=== PATIENT | female | born 1985 | race Caucasian/White ===

== ENCOUNTER 2018-10-16 05:39 | Outpatient (CLI) | payer BC ==
[~2018-10-16] VITALS: Ht 162.6 cm; Wt 71.7 kg
[~2018-10-16 05:39] MED LIST: AC325T PO; ALBU8.5H2 IH; AMIT50TA3 PO; BENZ100C18 PO; BUDE6HFA IH; CEFD300C3 PO; CEFP500T4 PO; CIPR500T78 PO; DEXL60CA5 PO; Docusate Sodium PO; ESTR0.62 PO; FEXO-14 PO; FEXO180T84 PO; GUAI118L10 PO; HYDR-757 PO; HYOS-19 SL; HYOS0.3710 PO; Hydrocodone Bit/Acetaminophen PO; IBP800T PO; Ibuprofen PO; LORA10TA76 PO; LUBI8CAP PO; Lupron; METR500T PO; MNTL10T PO; ONDA-42 SL; ONDA4TAB8 PO; ONDA8TAB13 PO; PANT20TA2 PO; PRD20T PO; RABE20TA PO; SCR1T1 PO; SUCR1TAB23 PO; Simethicone PO; TRAM50TA2 PO
[2018-10-16] MEDS ORDERED: BUDE10.2 IH (10:37)
[2018-10-16] MEDS ORDERED: OLME20TA24 PO (10:38)
[2018-10-16] MEDS ORDERED: ALBU6.7H8 INH (10:38)
[2018-10-16] MEDS ORDERED: BECL10.62 IH (10:38)
[2018-10-16] MEDS ORDERED: FEXO180T84 PO (10:38)
[2018-10-16] MEDS ORDERED: SERT100T8 PO (10:38)
[2018-10-21] MEDS ORDERED: PANT40TA2 PO (10:41)
== END 2018-10-16 11:33 | disposition home or self-care (01) ==
LOC: PREOP 05:39
PROVIDERS: ATTEND Surgery
DX: Z01.818 Encounter for other preprocedural examination (principal)

== ENCOUNTER 2018-10-21 08:34 | Day surgery (SDC) | payer BC ==
[2018-10-21] VITALS (20 sets, daily range): BP systolic 102–143; BP diastolic 58–93
[~2018-10-21] VITALS: Ht 162.6 cm; Wt 71.7 kg
[~2018-10-21 08:34] MED LIST changes: +ALBU6.7H8 INH; +BECL10.62 IH; +BUDE10.2 IH; +NS IV 500 ML 500 ML ONE; +OLME20TA24 PO; +SERT100T8 PO
[2018-10-21] MEDS ORDERED: HURRICAINE EXT TUBE (BENZOCAINE) XX PRN (08:45)
[2018-10-21] MEDS ORDERED: fentaNYL INJECTION 100 MCG/2 ML AMP IVP ONE (08:45)
[2018-10-21] MEDS ORDERED: NS IV 500 ML 500 ML IV PRN (08:45)
[2018-10-21] MEDS ORDERED: LIDOCAINE JELLY 2% 6 ML SYRINGE MM PRN (08:45)
[2018-10-21] MEDS ORDERED: MIDAZOLAM 2 MG/2 ML (VERSED) VIAL IVP ONE (08:45)
[2018-10-21] MEDS ORDERED: LIDOCAINE JELLY 2% 6 ML SYRINGE ONE (10:10)
[2018-10-21] MEDS ORDERED: fentaNYL INJECTION 100 MCG/2 ML AMP ONE ×3 (10:10→11:08)
[2018-10-21] MEDS ORDERED: MIDAZOLAM 2 MG/2 ML (VERSED) VIAL ONE ×6 (10:11→10:53)
[2018-10-21] MEDS ORDERED: HURRICAINE EXT TUBE (BENZOCAINE) ONE (10:11)
--- NOTE | 2018-10-21 10:39 | Conscious Sedation/ASA ---
Conscious Sedation Pre-Proced Time 10:00 ASA Score 2 For ASA 3 and 4: Consider anesthesia and medical clearance. Also, for patients with a history of failed moderate sedation consider anesthesia. Airway Lungs Heart ASA score ASA 1: a normal healthy patient ASA 2: a patient with a mild systemic disease (mid diabetes, controlled hypertension, obesity ASA 3: a patient with a severe systemic disease that limits activity (angina, COPD, prior Myocardial infarction) ASA 4: a patient with an incapacitating disease that is a constant threat to life (CHF, renal failure) ASA 5: a moribund patient not expected to survive 24 hrs. (ruptured aneurysm) ASA 6: a declared brain- patient whose organs are being harvested. For emergent operations, add the letter E after the classification Mallampati Classification Grade 2 Sedation Plan Analgesia, Amnesia, Plan communicated to team members, Discussed options with patient/fam, Discussed risks with patient/fam The patient is an appropriate candidate to undergo the planned procedure, sedation, and anesthesia. The patient immediately re-assessed prior to indication. CATALINA HATHAWAY MD Oct 21, 2018 10:39
--- NOTE | 2018-10-21 10:40 | Progress Note-Pre Operative ---
Pre-Operative Progress Note H&P Reviewed The H&P was reviewed, patient examined and no changes noted. Date Seen by Provider: Oct 21, 2018 Time Seen by Provider: 10:00 Date H&P Reviewed: Oct 21, 2018 Time H&P Reviewed: 10:00 Pre-Operative Diagnosis: hx luizas, abd pain CATALINA HATHAWAY MD Oct 21, 2018 10:40
[2018-10-21] MEDS ORDERED: PANT40TA2 PO (10:41)
--- NOTE | 2018-10-21 10:42 | Discharge Inst-Surgical ---
D/C Lap Instructions-KIDO New, Converted, or Re-Newed RX: RX on Chart Follow Up Appt in 2 weeks Activity as tolerated High Fiber Diet 25g or more per day Avoid Alcohol, Caffeine, Spicy Monserrate and Acid foods. Drink 64 fluid oz or more of fluids per day. Symptoms to Report: Fever over 101 degree F, Nausea/Vomiting If any problems/questions: Contact your physician or go to Emergency Room CATALINA HATHAWAY MD Oct 21, 2018 10:42
[2018-10-21] MEDS ORDERED: morphine INJ 10 MG/ML 1ML (SYR OR VIAL) IVP PRN ×2 (10:45)
[2018-10-21] MEDS ORDERED: ONDANSETRON 4 MG/2 ML (SDV) Z0FRAN IVP PRN (10:45)
[2018-10-21] MEDS ORDERED: HYDROcodone/APAP 5 MG/325 MG (LORTAB) TAB PO PRN (10:45)
[2018-10-21] MEDS ORDERED: ACETAMINOPHEN 325 MG TABLET PO PRN (10:45)
--- NOTE | 2018-10-21 11:43 | Progress Note-Post Operative ---
Post-Operative Progess Note Surgeon (s)/Targeteer (s) Surgeon CATALINA HATHAWAY MD Targeteer: none Pre-Operative Diagnosis hx barett's, abd pain Post-Operative Diagnosis reflux esophagitis(stage 2), no recurrent HH, moderate gastritis. chronic stage 2 ext and int hemorrhoids, no inflammatory change. Procedure & Operative Findings Date of Procedure 10/21/18 Procedure Performed/Findings EGD with bx. Colonoscopy. Anesthesia Type cs Estimated Blood Loss Estimated blood loss (mL): minimal Specimens/Packing Specimens Removed ge jxn, antrum CATALINA HATHAWAY MD Oct 21, 2018 11:43
--- NOTE | 2018-10-21 15:49 | OPERATIVE REPORT ---
DATE OF SERVICE: 10/21/2018 ATTENDING PRIMARY CARE PHYSICIAN: Dr. Marilee Villalobos. PREOPERATIVE DIAGNOSES: History of Finn's esophagus, diarrhea. POSTOPERATIVE DIAGNOSES: Reflux esophagitis, stage II, intact previous hiatal hernia repair and antireflux procedure, moderate gastritis, mild chronic stage II external and internal hemorrhoids. Remainder of the rectum and colon were normal. There were no mucosal inflammatory changes. PROCEDURE: EGD with biopsy, colonoscopy. SURGEON: Catalina Quinones MD. ANESTHESIA: Conscious sedation. ESTIMATED BLOOD LOSS: Minimal. FINDINGS: Reflux esophagitis, stage II, intact previous hiatal hernia repair and antireflux procedure, moderate gastritis, mild chronic stage II external and internal hemorrhoids. Remainder of the rectum and colon were normal. There were no mucosal inflammatory changes. DISPOSITION: The patient tolerated the procedure well. INDICATIONS: The patient is a 33-year-old female known to us. She has a history of gastroesophageal reflux disease as well as Finn's esophagus. She was seen by us 11/2012 for dysphagia, reflux for the past several years. She is originally from the [facility] and was living there when her symptoms first developed. She then developed worsening reflux as well as regurgitation and eventually underwent a hiatal hernia repair as well as a Jeni fundoplication in 2012. We had done a repeat EGD on her in 2016. She was found to have a reflux esophagitis, stage II, intact previous hiatal hernia repair and Jeni fundoplication. She was found to have Finn's esophagus. She has also had this issue with diarrhea from several years. She states there is no correlation with food or drinks. She states that she has tried medications for irritable bowel syndrome as well as Flagyl with no success. She does have a family history of inflammatory bowel disease with her father having ulcerative colitis as well as a paternal grandmother having Crohn's disease. DESCRIPTION OF PROCEDURE: The patient was brought to the endoscopy suite, laid in the left lateral decubitus position. After adequate IV pain and sedating medications and conscious sedation anesthesia, the mouthpiece was applied. The endoscope was placed in the mouth, visualizing the pharynx and hypopharyngeal region. Vocal cords, epiglottis and vallecula identified and appeared to be normal. The endoscope was then gently intubated into the esophageal opening and esophagus insufflated. The endoscope was then advanced to the first, second, third portions of the esophagus at the level of the GE junction, a reflux esophagitis, stage II identified. There were no ulcers or strictures identified in this region. Her biopsies were taken using forceps with visualization of good hemostasis. The endoscope was then advanced in the stomach and endoscope retroflexed, visualizing an intact previous hiatal hernia repair as well as intact antireflux procedure. There was a moderate severity gastritis. No formal ulcerations, polyps, or any neoplasms. A biopsy was taken of the antrum to rule out H. pylori with visualization of good hemostasis. Endoscope was then advanced to the pylorus and the first and second portion of the duodenum, which appeared normal with no distal obstructions. The endoscope was then slowly withdrawn while taking a second look and suctioning of residual air with no additional findings. Under the same anesthesia, we then proceeded with the colonoscopy portion of the procedure. Digital rectal examination was performed, which revealed chronic stage II external and internal hemorrhoids, not actively edematous nor inflamed and no bleeding. There were no inflammatory chronic or acute inflammatory changes, abscesses, fluctuance or any fistulous tracts. Normal sphincter tone was felt and there were no palpable masses. The endoscope was then intubated to the anus and rectum gently insufflated. The endoscope was then advanced to the valves of Smith of the rectum with no polyps or any neoplasms identified. The endoscope was then advanced through the sigmoid colon where no diverticulosis identified. The endoscope was then advanced to the descending, transverse and ascending colon to the cecum. These segments were normal. There were no polyps or any neoplasms identified as well as no mucosal inflammatory changes throughout the colon or rectum. The endoscope was slowly withdrawn while taking a second look and suctioning of residual air with no additional findings. The patient tolerated the procedure well. We will recommend continued medical management and proceed with a trial of Questran 4 grams on a p.r.n. basis. She did have a gallbladder workup several years ago, which did not show any abnormalities; however, due to her persistent symptoms, we will have her again proceed with another gallbladder workup with ultrasound that this did not show any stones than a hepatobiliary scan. Job ID: [id number] DocumentID: [id number] Dictated Date: 10/21/2018 11:33:36 Braid Pattern Setter Date: 10/21/2018 15:48:25 Dictated By: CATALINA QUINONES MD
== END 2018-10-21 12:56 | disposition home or self-care (01) ==
LOC: ENDO 08:34
PROVIDERS: ATTEND Surgery
DX: K21.0 Gastro-esophageal reflux disease with esophagitis (principal); K29.70 Gastritis, unspecified, without bleeding; K22.70 Barrett's esophagus without dysplasia; K64.1 Second degree hemorrhoids; K64.8 Other hemorrhoids; K44.9 Diaphragmatic hernia without obstruction or gangrene; K58.9 Irritable bowel syndrome, unspecified; F41.9 Anxiety disorder, unspecified; I10 Essential (primary) hypertension; G43.911 Migraine, unspecified, intractable, with status migrainosus; J45.909 Unspecified asthma, uncomplicated; R19.7 Diarrhea, unspecified; D64.9 Anemia, unspecified; Z90.89 Acquired absence of other organs; Z79.899 Other long term (current) drug therapy; Z90.710 Acquired absence of both cervix and uterus; Z91.040 Latex allergy status; Z91.048 Other nonmedicinal substance allergy status; Z87.891 Personal history of nicotine dependence; Z82.49 Family history of ischemic heart disease and other diseases of the circulatory system; Z83.3 Family history of diabetes mellitus; Z80.1 Family history of malignant neoplasm of trachea, bronchus and lung; Z80.0 Family history of malignant neoplasm of digestive organs; Z83.2 Family history of diseases of the blood and blood-forming organs and certain disorders involving the immune mechanism; Z83.79 Family history of other diseases of the digestive system
CPT/HCPCS: 88305

== ENCOUNTER → 2018-10-28 | Outpatient (CLI) | payer BC ==
[~2018-10-28] MED LIST changes: -NS IV 500 ML 500 ML ONE; +PANT40TA2 PO
--- NOTE | 2018-10-28 09:11 | Diagnostic Imaging Report ---
PROCEDURE: US Gallbladder. TECHNIQUE: Multiple real-time grayscale images were obtained over the right upper quadrant in various projections. INDICATION: Right upper quadrant abdominal pain. COMPARISON: None. FINDINGS: Liver: Normal in size and echotexture. No focal lesion is seen. Appropriate hepatopetal flow is demonstrated in the main portal vein. Gallbladder: Normal. No stones or gallbladder wall thickening. No pericholecystic fluid. Negative sonographic Titus's sign. Biliary Tree: No intrahepatic or extrahepatic bile duct dilation is identified. The proximal common duct measures 0.3 cm in diameter. Pancreas: No abnormality in the visualized portion of the pancreatic head. The body and tail are obscured by overlying bowel gas. Right kidney: Normal parenchymal echotexture and thickness. No hydronephrosis, stone or mass. IMPRESSION: Right upper quadrant ultrasound is within normal limits. Dictated by: Dictated on workstation # [id number]
== END ==
LOC: RAD 08:06
PROVIDERS: ATTEND Surgery
DX: R10.11 Right upper quadrant pain (principal); R11.2 Nausea with vomiting, unspecified
CPT/HCPCS: 76705

== ENCOUNTER → 2018-11-05 | Outpatient (CLI) | payer BC ==
--- NOTE | 2018-11-05 17:35 | Diagnostic Imaging Report ---
INDICATION: Fall, pain. COMPARISON: Radiographs of the chest dated September 24, 2014. TECHNIQUE: Three radiographs of the left-sided ribs dated November 05, 2018. FINDINGS: No displaced or healing rib fracture. No large volume pleural effusion or pneumothorax. Surgical clip is again identified overlying the left upper abdomen/lower chest. IMPRESSION: No displaced or healing rib fracture. No significant pleural effusion or pneumothorax. Dictated by: Dictated on workstation # [id number]
== END ==
LOC: RAD 15:59
PROVIDERS: ATTEND Nurse Practitioner Family
DX: R07.81 Pleurodynia (principal); W19.XXXA Unspecified fall, initial encounter
CPT/HCPCS: 71100

== ENCOUNTER → 2018-11-09 | Outpatient (CLI) | payer BC, OTHER ==
[~2018-11-09] MED LIST changes: +CATHETER FLUSH 10 ML SYR IV PRN
--- NOTE | 2018-11-09 12:26 | Diagnostic Imaging Report ---
INDICATION: Right upper quadrant pain. TECHNIQUE: The patient was administered 5.3 mCi technetium 99m Choletec intravenously and imaging over the abdomen was performed. At one hour, the patient ingested 8 ounces of Ensure and a gallbladder ejection fraction was calculated. FINDINGS: There is homogeneous uptake of activity by the liver. There is prompt excretion of activity into the common duct and gallbladder. Normal passage of activity into the small bowel is seen. Gallbladder ejection fraction is 99%. IMPRESSION: 1. Patent cystic duct and common bile duct. 2. Gallbladder ejection fraction of 99%. Dictated by: Dictated on workstation # [id number]
== END ==
LOC: CARD 09:27
PROVIDERS: ATTEND Surgery
DX: R10.11 Right upper quadrant pain (principal); R11.2 Nausea with vomiting, unspecified
CPT/HCPCS: 78227

== ENCOUNTER → 2019-02-08 | Outpatient (CLI) | payer BC, OTHER ==
[~2019-02-08] MED LIST changes: -CATHETER FLUSH 10 ML SYR IV PRN
--- NOTE | 2019-02-08 14:51 | Diagnostic Imaging Report ---
INDICATION: Cough. TIME OF EXAM: 01:27 p.m. COMPARISON: Comparison is made with prior chest from 09/24/2014. FINDINGS: The heart size is normal. The pulmonary vascularity is unremarkable. The lungs are clear. No infiltrate, effusion or pneumothorax is detected. IMPRESSION: No acute cardiopulmonary process is detected. Dictated by: Dictated on workstation # [id number]
== END ==
LOC: RAD 12:16
PROVIDERS: ATTEND Nurse Practitioner Family
DX: R05 Cough (principal)
CPT/HCPCS: 71046

== ENCOUNTER → 2019-05-04 | Outpatient (CLI) | payer BC, OTHER ==
--- NOTE | 2019-05-04 12:41 | Diagnostic Imaging Report ---
Right ankle. Indication: Chronic ankle pain. 3 views were obtained. There are no prior studies available for comparison. There is no fracture, dislocation or acute bony abnormality evident. The ankle mortise is not widened and the talar dome is smooth. The soft tissues are unremarkable. Impression: 1. There is no evidence for an acute bony abnormality. 2. If clinical concern regarding an underlying abnormality persists and further imaging is desired, MRI would be recommended. Dictated by: Dictated on workstation # [id number]
== END ==
LOC: RAD 10:33
PROVIDERS: ATTEND Nurse Practitioner Family
DX: M25.571 Pain in right ankle and joints of right foot (principal)
CPT/HCPCS: 73610

== ENCOUNTER 2019-09-01 12:00 | Outpatient (RCR) | payer BC, OTHER ==
--- NOTE | 2019-09-01 13:33 | Diagnostic Imaging Report ---
PROCEDURE: US Thyroid. TECHNIQUE: Multiple real-time grayscale images were obtained of the thyroid in various projections. INDICATION: Goiter. COMPARISON: No prior studies are available for comparison. FINDINGS: The right lobe of thyroid measures 4.7 x 1.9 x 1.6 cm and the left lobe measures 4.3 x 2.7 x 1.5 cm. Isthmus is 5 mm in thickness. Both lobes are heterogeneous and demonstrate increased vascularity. There is a hypoechoic nodule in the right lobe lower pole measuring 1.3 x 1.1 x 1.0 cm. No associated microcalcifications are seen. IMPRESSION: Heterogeneous thyroid with small circumscribed nodule in lower pole of right lobe. Follow-up in six months could be performed to confirm stability. Dictated by: Dictated on workstation # [id number]
== END 2019-11-30 | disposition home or self-care (01) ==
LOC: RAD 12:00
PROVIDERS: ATTEND Nurse Practitioner Family
DX: E04.1 Nontoxic single thyroid nodule (principal); E07.89 Other specified disorders of thyroid; R00.2 Palpitations
CPT/HCPCS: 76536; 93225; 93226

== ENCOUNTER → 2019-09-28 | Outpatient (CLI) | payer BC, OTHER ==
--- NOTE | 2019-09-29 12:34 | Diagnostic Imaging Report ---
INDICATION: Thyroid nodule. Correlation is made with thyroid ultrasound from 09/01/2019. Patient was administered 204 uCi of I-123 and a 4 hour and 24-hour thyroid uptake as well as thyroid scan was performed. 4 hour thyroid uptake is 11%. Normal values are 8-16%. The 24-hour thyroid uptake is 35%. Normal values are 10-30%. Thyroid scan shows fairly homogeneous uptake of activity throughout both lobes. There is some increased activity in the lower pole of the right lobe of the thyroid. This does correspond to the location of recently seen thyroid nodule. A hyperfunctioning nodule is suspected. No cold nodules are seen. IMPRESSION: Slightly elevated 24-hour thyroid uptake as well as increased activity in the lower pole right lobe of the thyroid, corresponding with the nodule noted recently on ultrasound. Features are suggestive of a hyperfunctioning nodule. No cold nodules are identified. Dictated by: Dictated on workstation # [id number]
== END ==
LOC: CARD 10:36
PROVIDERS: ATTEND Nurse Practitioner Family
DX: E04.1 Nontoxic single thyroid nodule (principal)
CPT/HCPCS: 78014; A9516

== ENCOUNTER → 2020-02-25 | Outpatient (CLI) | payer BC, OTHER ==
[~2020-02-25] MED LIST changes: +RT-ALBUTEROL SULF 2.5 MG/3 ML PRE-MIX VIAL INH ONE
--- NOTE | 2020-02-25 12:47 | Diagnostic Imaging Report ---
INDICATION: Asthma. TIME OF EXAM: 11:14 a.m. COMPARISON: Comparison is made with prior chest 02/08/2019. FINDINGS: The heart size is normal. The pulmonary vascularity is unremarkable. The lungs are clear. No infiltrate, effusion or pneumothorax is detected. IMPRESSION: No acute cardiopulmonary process is detected. Dictated by: Dictated on workstation # [id number]
== END ==
LOC: RT 10:18
PROVIDERS: ATTEND Internal Medicine Critical Care Medicine
DX: J45.909 Unspecified asthma, uncomplicated (principal)
CPT/HCPCS: 71046; 94060; 94726; 94729

== ENCOUNTER → 2020-04-26 | Outpatient (CLI) | payer BC, OTHER ==
[~2020-04-26] MED LIST changes: +GADOBUTROL 7.5 MMOL/7.5 ML (GADAVIST) VIAL IV ONE; -RT-ALBUTEROL SULF 2.5 MG/3 ML PRE-MIX VIAL INH ONE; +SERT-414 PO; -SERT100T8 PO
--- NOTE | 2020-04-26 11:05 | Diagnostic Imaging Report ---
PROCEDURE: MR imaging of the brain with and without contrast. TECHNIQUE: Multiplanar, multisequence MR imaging of the brain was performed with and without contrast. INDICATION: Headaches. COMPARISON: No prior studies are available for comparison. FINDINGS: The ventricles and sulci are within normal limits. No sulcal effacement or midline shift is identified. There is no diffusion restriction identified. The normal expected flow-voids within the carotid siphons are seen. Corpus callosum is unremarkable. The sella and parasellar structures are unremarkable. No enhancing lesion is identified on postcontrast images. IMPRESSION: Unremarkable pre and postcontrast MRI of the brain. Dictated by: Dictated on workstation # [id number]
== END ==
LOC: RAD 08:45
PROVIDERS: ATTEND Nurse Practitioner Family
DX: R00.2 Palpitations (principal); E34.9 Endocrine disorder, unspecified; R79.89 Other specified abnormal findings of blood chemistry; R61 Generalized hyperhidrosis; R23.2 Flushing
CPT/HCPCS: 70553

== ENCOUNTER → 2020-05-10 | Outpatient (CLI) | payer BC ==
[~2020-05-10] MED LIST changes: +CATHETER FLUSH 10 ML SYR IV PRN; -GADOBUTROL 7.5 MMOL/7.5 ML (GADAVIST) VIAL IV ONE; +HOLD METFORMIN - RECEIVED CONTRAST 20 ML VIAL IV SCH; +IOHEXOL 350 MG/ML 100 ML (OMNIPAQUE 350) VIAL IV ONE; +NS 100 ML (IVPB) BAG IV ONE
[2020-05-10 08:20] LABS: BASOPHILS % (AUTO) 1 % (0-10); EOSINOPHILS # (AUTO) 0.3 10^3/uL (0.0-0.3); EOSINOPHILS % (AUTO) 6 % (0-10); HEMATOCRIT 42 % (35-52); LYMPHOCYTES # (AUTO) 1.5 10^3/uL (1.0-4.0); LYMPHOCYTES % (AUTO) 27 % (12-44); MEAN CORPUSCULAR HEMOGLOBIN 31 pg (25-34); MEAN CORPUSCULAR HGB CONC 33 g/dL (32-36); MEAN CORPUSCULAR VOLUME 92 fL (80-99); MEAN PLATELET VOLUME 8.9 fL (9.0-12.2); MONOCYTES # (AUTO) 0.4 10^3/uL (0.0-1.0); MONOCYTES % (AUTO) 7 % (0-12); NEUTROPHILS # (AUTO) 3.3 10^3/uL (1.8-7.8); NEUTROPHILS % (AUTO) 59 % (42-75); PLATELET COUNT 186 10^3/uL (130-400); WHITE BLOOD COUNT 5.5 10^3/uL (4.3-11.0)
[2020-05-10 08:37] LABS: BUN/CREATININE RATIO 13; CREATININE SERUM 0.86 MG/DL (0.60-1.30); GFR ESTIMATED > 60
--- NOTE | 2020-05-10 09:38 | Diagnostic Imaging Report ---
PROCEDURE: CT chest with contrast only. TECHNIQUE: Multiple contiguous axial images were obtained through the chest after administration of intravenous contrast. Auto Exposure Controls were utilized during the CT exam to meet ALARA standards for radiation dose reduction. INDICATION: Cough There are no prior CT chest examinations available for comparison. The plain film examination of the chest performed on 02/25/2020 failed to show any sign of an acute cardiopulmonary abnormality. On this study the heart size is within normal limits. There are no coronary artery calcifications evident. The aorta is not abnormally dilated and there is no sign of a dissection. The pulmonary arteries were not well opacified and consequently difficult to assess for pulmonary embolus. There is no obvious defect to suggest a pulmonary embolus. The lungs are generally clear and well aerated. There is no evidence for failure, pneumonia or for pleural effusion. There is no parenchymal lung mass identified. There is no mediastinal or hilar adenopathy. The thyroid gland was not visualized in its entirety. Where visualized there is no acute abnormality. There is no obvious breast mass. The sections through the upper abdomen show the liver is of lower density than usually seen. This appearance is similar to the prior CT abdomen/pelvis exam of 12/26/2013, and is most likely due to fatty metamorphosis. There is no acute abnormality of the upper abdomen. The bone windows show no sign of an acute fracture. However there is anterior wedging of the inferior endplate of T12 and minimal anterior wedging of the superior endplate of L1. I suspect these injuries are long-standing in nature. If there is clinical concern regarding an acute injury however, then MRI would be recommended. IMPRESSION: 1. There is no evidence for acute cardiopulmonary abnormality. The pulmonaries were not well opacified however, and consequently, difficult to assess for pulmonary embolus. 2. The appearance of the liver does suggest fatty metamorphosis. 3. The minimal compression deformities of T12 and L1 are most likely long-standing in nature. Dictated by: Dictated on workstation # [id number]
[2020-05-11 05:56] LABS: ALTERNARIA MOLD RAST <0.10 kU/L (0.00-0.09); RAGWEED RAST <0.10 kU/L (0.00-0.09)
== END ==
LOC: RAD 07:55
PROVIDERS: ATTEND Nurse Practitioner Family
DX: J30.9 Allergic rhinitis, unspecified (principal); G95.20 Unspecified cord compression
CPT/HCPCS: 36415; 71260; 82565; 82785; 84520; 85025; 86003

== ENCOUNTER → 2020-05-10 | Outpatient (CLI) | payer BC ==
[~2020-05-10] MED LIST changes: -CATHETER FLUSH 10 ML SYR IV PRN; -HOLD METFORMIN - RECEIVED CONTRAST 20 ML VIAL IV SCH; -IOHEXOL 350 MG/ML 100 ML (OMNIPAQUE 350) VIAL IV ONE; -NS 100 ML (IVPB) BAG IV ONE
[2020-05-10 09:10] LABS: FREE T4 (FREE THYROXINE) 0.83 NG/DL (0.70-1.48)
== END ==
LOC: LAB 08:00
PROVIDERS: ATTEND Internal Medicine
DX: E03.9 Hypothyroidism, unspecified (principal)
CPT/HCPCS: 36415; 84439; 84443; 84481

== ENCOUNTER → 2020-09-05 | Outpatient (CLI) | payer BC ==
--- NOTE | 2020-09-05 12:50 | Diagnostic Imaging Report ---
INDICATION: Chronic steroid use COMPARISON: Baseline FINDINGS: AP Spine L1-L4: [BMD (g/cm2): 1.050] [T-Score: -1.2] [Z-Score: -1.5] [BMD Previous: NA] [BMD % Change: NA] LT Hip Neck: [BMD (g/cm2): 1.079] [T-Score: 0.3] [Z-Score: 0.5] LT Hip Total: [BMD (g/cm2):1.105] [T-Score:0.8] [Z-Score: 0.8] [BMD Previous: NA] [BMD % Change: NA] RT Hip Neck: [BMD (g/cm2):0.988] [T-Score:-0.4] [Z-Score:-0.2] RT Hip Total: [BMD (g/cm2):1.051] [T-score:0.3] [Z-Score:0.3] [BMD Previous:NA] [BMD % Change:NA] *Indicates significant change from prior examination based on 95% confidence level. World Health Organization criteria for BMD interpretation classify patients as Normal (T-score at or above -1.0), Osteopenic (T-score between -1.0 and -2.5) or Osteoporotic (T-score at or below -2.5). LIMITATIONS AND MODIFICATION: None. FRACTURE RISK (FRAX SCORE): The ten year probability of (%): Major Osteoporotic Fracture: [NA] Hip Fracture: [NA] IMPRESSION: 1. Osteopenia (Low bone mass). 2. Baseline examination. 3. See below National Osteoporosis Foundation guidelines on when to potentially initiate pharmacologic therapy. Based on the National Osteoporosis Foundation Guidelines, pharmacologic treatment should be initiated in any of the following, unless clinical conditions suggest otherwise: * Any patient with prior fragility fracture of the hip or vertebrae. A spine fracture indicates 5X risk for subsequent spine fracture and 2X risk for subsequent hip fracture. * Osteoporosis (T-score <-2.5). * Postmenopausal women and men age 50 and older with low bone mass/osteopenia (T-score between -1.0 and -2.5) by DXA and 10-year major osteoporotic fracture greater than 20% or a 10-year probability of hip fracture greater than 3%. These fracture risks are supplied above in the FRAX score, if applicable. * Clinician judgement and/or patient preferences may indicate treatment for people with 10-year fracture probabilities above or below these levels. Dictated by: Dictated on workstation # [id number]
== END ==
LOC: RAD 11:30
PROVIDERS: ATTEND Nurse Practitioner Family
DX: M85.80 Other specified disorders of bone density and structure, unspecified site (principal); M48.54XA Collapsed vertebra, not elsewhere classified, thoracic region, initial encounter for fracture; Z79.52 Long term (current) use of systemic steroids; Z78.0 Asymptomatic menopausal state
CPT/HCPCS: 77080

== ENCOUNTER → 2020-12-11 | Outpatient (CLI) | payer BC ==
--- NOTE | 2020-12-11 16:01 | Diagnostic Imaging Report ---
INDICATION: Wrist pain and swelling. COMPARISON: None. FINDINGS: Three views of the left wrist demonstrate no acute fracture or dislocation. There are no focal osseous lesions. No avascular necrosis is seen. The visualized soft tissue structures are unremarkable. The pronator fat pad is not displaced. There are no radio opaque foreign bodies. IMPRESSION: No acute fracture or dislocation in the left wrist. Dictated by: Dictated on workstation # [id number]
== END ==
LOC: RAD 15:34
PROVIDERS: ATTEND Nurse Practitioner Family
DX: M25.532 Pain in left wrist (principal); M25.432 Effusion, left wrist
CPT/HCPCS: 73110

== ENCOUNTER → 2021-01-01 | Outpatient (CLI) | payer BC ==
--- NOTE | 2021-01-01 11:12 | Diagnostic Imaging Report ---
EXAMINATION: Magnetic resonance imaging of the left wrist without contrast. DATE: January 01, 2021. COMPARISON: Left wrist radiographs December 11, 2020. HISTORY: 35-year-old female, left wrist pain. TECHNIQUE: Magnetic Resonance Imaging sequences were performed of the wrist without contrast. FINDINGS: TRIANGULAR FIBROCARTILAGE COMPLEX: The triangular fibrocartilage disc, dorsal radioulnar ligament, volar radioulnar ligament, ulnolunate ligament, ulnotriquetral ligament, extensor carpi ulnaris tendon and sheath, and meniscal homologue are grossly intact. INTRINSIC LIGAMENTS: The scapholunate and lunotriquetral ligaments are grossly intact. JOINTS: There is a trace to small distal radial ulnar joint effusion. There is no arthritis of the distal radioulnar joint. The additional joint spaces are well preserved. There is no additional joint effusion. CARPAL TUNNEL: There is susceptibility artifact in the region of the floor of the carpal tunnel which may relate to prior surgery. The flexor retinaculum is unremarkable. The flexor digitorum superficialis and profundus are intact. The median nerve is unremarkable specifically within the carpal tunnel. FLEXOR TENDONS: The flexor carpi ulnaris, flexor pollicis longus, and carpi radialis are intact. EXTENSOR TENDONS: There is a small amount of fluid in the second extensor tendon compartment, consistent with tenosynovitis. Additional evaluation of the extensor tendons is unremarkable. BONE: There is a normal variant type II lunate facet. There is no acute fracture, bone contusion, or other notable bone marrow signal abnormality. BURSAE AND SOFT TISSUES: There is no identified ganglion cyst. There is a T1 and T2 hyperintense lesion projecting along the course of the median nerve proximal to the carpal tunnel at the area of focal concern. This measures 4 x 3 mm in size. IMPRESSION: 1. Grossly intact triangular fibrocartilage complex and intrinsic wrist ligaments on non-arthrogram evaluation. 2. 4 x 3 mm lesion involving the median nerve proximal to the level of the carpal tunnel at the area of focal concern which may relate to a nonspecific neural lesion. 3. Susceptibility artifact in the region of the floor of the carpal tunnel which may relate to prior surgery. 4. Tenosynovitis involving the second extensor compartment. Negative for tendon tear. 5. Trace to small distal radioulnar joint effusion with relatively well preserved joint spaces. 6. No bone marrow signal abnormality. Dictated by: Dictated on workstation # [id number]
== END ==
LOC: RAD 10:15
PROVIDERS: ATTEND Nurse Practitioner Family
DX: M65.842 Other synovitis and tenosynovitis, left hand (principal)
CPT/HCPCS: 73221

== ENCOUNTER 2021-08-29 19:13 | Emergency (ER) | payer BC ==
[~2021-08-29] VITALS: Ht 162.6 cm; Wt 75.7 kg
[2021-08-29] MEDS ORDERED: NITR100C10 (19:45)
[2021-08-29 19:53] LABS: BILIRUBIN,URINE NEGATIVE (NEGATIVE); CLARITY,URINE SL CLOUDY; COLOR,URINE YELLOW; GLUCOSE, URINE (UA) NEGATIVE (NEGATIVE); KETONES,URINE NEGATIVE (NEGATIVE); LEUKOCYTE ESTERASE ,URINE 1+ (NEGATIVE); NITRITE,URINE POSITIVE (NEGATIVE); PH,URINE 6.5 (5-9); PROTEIN,URINE 2+ (NEGATIVE)
[2021-08-29 20:01] LABS: BACTERIA,URINE NEGATIVE /HPF; RBC,URINE 50-100 /HPF; WBC,URINE 50-100 /HPF
[2021-08-29] MEDS ORDERED: PHENAZOPYRIDINE 100 MG (PYRIDIUM) TABLET PO STA (20:08)
[2021-08-29] MEDS ORDERED: KETOROLAC 30 MG/ML VIAL IVP STA (20:12)
[2021-08-29] MEDS ORDERED: ONDANSETRON 4 MG/2 ML (SDV) Z0FRAN IVP ONE (20:15)
[2021-08-29] MEDS ORDERED: NS IV 1000 ML 1,000 ML IV SCH (20:15)
--- NOTE | 2021-08-29 20:18 | ED GU-Female ---
General Chief Complaint: - Reproductive Stated Complaint: ABDOMINAL PAIN Nursing Triage Note: c/o painful urination x1.5 days, right flank pain x3hrs. seen at [facility] for same & started on macrobid. reports pain worse tonight. (EMMA VEGA) History of Present Illness Date Seen by Provider: Aug 29, 2021 Time Seen by Provider: 19:45 Initial Comments 36-year-old female presents for suprapubic and right flank pain. [facility] with [facility] but referred here for further follow-up of kidney stone. Patient denies previous history of kidney stones. She is having mild nausea. She has not taken any antibiotics or analgesics [employer]. Timing/Duration: this afternoon Severity/Quality: moderate Location: suprapubic, right flank Associated Symptoms: No fever/chills, No loss of bladder control, No lower back pain; nausea/vomiting (trace, from pain), urinary frequency (EMMA VEGA) Allergies and Home Medications Allergies Coded Allergies: Latex, Natural Rubber (Verified Allergy, Mild, RASH, 10/16/18) adhesive tape (Verified Allergy, Mild, RASH, 10/16/18) Patient Home Medication List Home Medication List Reviewed: Yes (EMMA VEGA) Albuterol Sulfate (Proventil Hfa) 6.7 Gm Hfa.aer.ad, 6.7 GM INH PRN PRN for SHORTNESS OF BREATH, (Reported) Entered as Reported by: STEPHANIE SAUNDERS on 10/16/18 1038 Beclomethasone Dipropionate (Qvar Redihaler) 10.6 Gm Hfa.aeroba, 10.6 GM IH DAILY, (Reported) Entered as Reported by: STEPHANIE SAUNDERS on 10/16/18 1038 Budesonide/Formoterol Fumarate (Symbicort 160-4.5 Mcg Inhaler) 10.2 Gm Hfa.aer.ad, 2 PUFF IH BID PRN for SHORTNESS OF BREATH, (Reported) Entered as Reported by: STEPHANIE SAUNDERS on 10/16/18 1037 Fexofenadine HCl (Marita Allergy) 180 Mg Tablet, 180 MG PO DAILY, (Reported) Entered as Reported by: STEPHANIE SAUNDERS on 10/16/18 1038 Nitrofurantoin Monohyd/M-Cryst (Nitrofurantoin Wythe-Mcr 100 mg) 100 Mg Capsule, (Reported) Entered as Reported by: ANIL LAU on 08/29/211944 Last Action: New Order Olmesartan Medoxomil (Olmesartan Medoxomil) 20 Mg Tablet, 20 MG PO DAILY, (Rep orted) Entered as Reported by: STEPHANIE SAUNDERS on 10/16/18 1038 Pantoprazole Sodium (Protonix) 40 Mg Tablet.dr, 40 MG PO DAILY Prescribed by: CATALINA HATHAWAY on 10/21/18 1041 Sertraline HCl (Sertraline HCl) 100 Mg Tablet, 100 MG PO DAILY, (Reported) Entered as Reported by: SETPHANIE SAUNDERS on 10/16/18 1038 Review of Systems Review of Systems Constitutional: no symptoms reported, see HPI Gastrointestinal: see HPI, abdominal pain, nausea Genitourinary: see HPI, flank pain, hematuria, pain : No (EMMA VEGA) All Other Systemes Reviewed Negative Unless Noted: Yes (EMMA VEGA) Past Zfuysgv-Bvazoj-Yghnek Hx Patient Social History Tobacco Use?: No Substance use?: No Alcohol Use?: No Pt feels they are or have been: No (EMMA VEGA) Immunizations Up To Date Tetanus Booster (TDap): Unknown (EMMA VEGA) Seasonal Allergies Seasonal Allergies: Yes (EMMA VEGA) Past Medical History Surgery/Hospitalization HX: hypothryoidism, gerd, mast cell disorder, high cholesterol Surgeries: Yes (DENTAL, RIGHT BREAST LUMPECTOMY X2, DXLS X3, LAP JAQUAN, CTR L, SHOULDER) Adenoidectomy, Breast, Section, Hysterectomy, Oophorectomy, Tonsillectomy Respiratory: Yes (BEGINING STAGES COPD) Asthma, COPD Cardiac: No Hypertension Neurological: Yes Headaches /Migraines Reproductive Disorders: Yes (PELVIC PAIN, ENDOMETRIOSIS) Female Reproductive Disorders: Denies [employer]PA[employer]ER History: Hysterectomy Sexually Transmitted Disease: No HIV/AIDS: No Genitourinary: No Gastrointestinal: Yes Finn's Esophagus, Chronic Diarrhea, Ulcer, Irritable Bowel Musculoskeletal: No Endocrine: Yes (RECENTLY STOPPED THYROID MEDS FOR RE-EVALUATION) Hypothyroidsim HEENT: Yes (GLASSES/CONTACTS) Loss of Vision: Denies Hearing Impairment: Denies Cancer: No Psychosocial: No (HX DEPRESSION TEEN) Integumentary: No Blood Disorders: No (HX MILD AMEMIA) Adverse Reaction/Blood Tranf: No (N/A) (EMMA VEGA) Family Medical History Reviewed Nursing Family Hx (SILVIAEMMA STEINER) Alcoholism G8 BROTHER Family history: Diabetes mellitus G8 BROTHER Family history: Hypertension 19 FATHER 19 MOTHER G8 BROTHER History of - disorder G8 BROTHER (GOUT) Stroke 19 FATHER (TIA X3) No Family History of: Abdominal aortic aneurysm Cancer Family history: Allergy Family history: Alzheimer's disease Family history: Arthritis Family history: Asthma Family history: Cardiovascular disease Family history: Coronary thrombosis Family history: Thyroid disorder Hereditary disease History of - respiratory disease Kidney disease Myocardial infarction Prostate cancer Psychotic disorder Seizure disorder Physical Exam Vital Signs Vital Signs - First Documented 08/29/21 19:40 Temp 36.8 Pulse 74 Resp 18 B/P (MAP) 145/95 (112) Pulse Ox 98 O2 Delivery Room Air (KATHY MISHRA MD) Vital Signs Capillary Refill : Less Than 3 Seconds (EMMA VEGA) Height, Weight, BMI Height: 5'4.00" Weight: 158lbs. 0.0oz. 71.802306aq; 28.00 BMI Method:Stated General Appearance: WD/WN, no apparent distress Cardiovascular: normal peripheral pulses, regular rate, rhythm, no edema Respiratory: chest non-tender, lungs clear, normal breath sounds Gastrointestinal: normal bowel sounds, non tender, soft Back: normal inspection, no vertebral tenderness, CVA tenderness (R) Neurologic/Psychiatric: no motor/sensory deficits, alert, normal mood/affect, oriented x 3 Skin: normal color, warm/dry (EMMA VEGA) Progress/Results/Core Measures Suspected Sepsis SIRS Temperature: Pulse: 74 Respiratory Rate: 18 Blood Pressure 145 /95 Mean: 112 (EMMA VEGA) Results/Orders Lab Results Laboratory Tests Test 08/29/21 19:43 Range/Units Urine Color YELLOW Urine Clarity SL CLOUDY Urine pH 6.5 5-9 Urine Specific [place] >=1.030 1.016-1.022 Urine Protein 2+ H NEGATIVE Urine Glucose (UA) NEGATIVE NEGATIVE Urine Ketones NEGATIVE NEGATIVE Urine Nitrite POSITIVE H NEGATIVE Urine Bilirubin NEGATIVE NEGATIVE Urine Urobilinogen 0.2 < = 1.0 MG/DL Urine Leukocyte Esterase 1+ H NEGATIVE Urine RBC (Auto) 3+ H NEGATIVE Urine RBC 50-100 H /HPF Urine WBC 50-100 H /HPF Urine Squamous Epithelial Cells NONE /HPF Urine Renal Epithelial Cells NONE /HPF Urine Crystals NONE /LPF Urine Bacteria NEGATIVE /HPF Urine Casts NONE /LPF Urine Mucus NEGATIVE /LPF Urine Culture Indicated YES (KATHY MISHRA MD) Medications Given in ED Current Medications Medications Dose Ordered Sig/Tylor Route Start Time Stop Time Status Last Admin Dose Admin Ceftriaxone Sodium/Dextrose 50 ml @ 100 mls/hr ONCE ONCE IV 08/29/21 20:45 08/29/21 21:14 DC 08/29/21 20:54 100 MLS/HR Ondansetron HCl 4 mg ONCE ONCE IVP 08/29/21 20:15 08/29/21 20:16 DC 08/29/21 20:21 4 MG (KATHY MISHRA MD) Vital Signs/I&O 08/29/21 08/29/21 19:40 21:17 Temp 36.8 36.5 Pulse 74 64 Resp 18 16 B/P (MAP) 145/95 (112) 136/90 Pulse Ox 98 96 O2 Delivery Room Air Room Air 08/30/21 00:00 Intake Total 1050 ml Balance 1050 ml (KATHY MISHRA MD) Vital Signs/I&O Capillary Refill : Less Than 3 Seconds (EMMA VEGA) Blood Pressure Mean: 112 Diagnostic Imaging Diagonstic Imaging: CT Plain Films/CT/US/NM/MRI: abdomen, pelvis Comments NAME: MARINA RAMIREZ [facility] REC#: [id number] PT STATUS: REG ER : 1985 PHYSICIAN: EMMA VEGA ADMIT DATE: 08/29/21/ER Signed Date of Exam:08/29/21 CT ABD/PELVIS WO(KIDNEY STONE) PROCEDURE: CT urinary tract, rule out kidney stone. TECHNIQUE: Multiple contiguous axial images were obtained through the abdomen and pelvis without the use of intravenous contrast. Auto Exposure Controls were utilized during the CT exam to meet ALARA standards for radiation dose reduction. INDICATION: Painful urination. Right-sided flank pain. COMPARISON: 01/28/2014. FINDINGS: The heart is unremarkable. The lung bases are clear. There is mild right-sided hydronephrosis with mild wall thickening of the proximal right ureter. No obstructing calculi are seen. No perinephric fat stranding. The urinary bladder is decompressed. The liver, spleen, pancreas and adrenal glands have a normal noncontrast CT appearance. The gallbladder is unremarkable. There is no pathologically enlarged mesenteric or retroperitoneal adenopathy. The bowel loops are nondilated. The appendix is visualized in the right lower quadrant and has a normal appearance. There is no free fluid or free air. No acute osseous abnormalities. There is no free air, loculated collection or adenopathy in the pelvis. IMPRESSION: Mild right-sided hydronephrosis with mild wall thickening in the proximal right ureter. No obstructing calculi. Findings may represent recently passed calculus versus urinary tract infection. Recommend correlation with UA. Dictated by: Dictated on workstation # [id number] Dict: 08/29/212030 Trans: 08/29/212037 [facility] [phone] Interpreted by: BRI RODARTE DO Electronically signed by: BRI RODARTE DO 08/29/212037 Reviewed: Reviewed by Me (EMMA VEGA) Departure Impression Primary Impression: UTI (urinary tract infection) Qualified Codes: N30.01 - Acute cystitis with hematuria Disposition: HOME, SELF-CARE Condition: Improved Departure-Patient Inst. Decision time for Depature: 20:40 (EMMA VEGA) Referrals: NATE MARTINEZ MD (PCP/Family) Primary Care Physician Patient Instructions: Urinary Tract Infection, Adult (DC) Add. Discharge Instructions: Increase water intake, 16 ounces every 2 hours while awake. Drink 1 cup of cranberry juice or eat 1 cup of fresh blueberries daily. Alternate between Tylenol 650 mg and ibuprofen 600 mg every 4 hours for pain. Take Macrobid as prescribed. Follow-up with your primary care provider if symptoms are not improving or worsen. Return to the emergency department for new, urgent healthcare needs. All discharge instructions reviewed with patient and/or family. Voiced understanding. ATTENDING PHYSICIAN NOTE: I was physically present as attending physician in the emergency department during the care of this patient, but I was not directly involved in the decision making or delivery of care for this patient. (KATHY MISHRA MD) Copy Copies To 1: NATE MARTINEZ MD, AMY ARNP Aug 29, 2021 20:18 KATHY MISHRA MD Aug 30, 2021 05:00
--- NOTE | 2021-08-29 20:36 | Diagnostic Imaging Report ---
PROCEDURE: CT urinary tract, rule out kidney stone. TECHNIQUE: Multiple contiguous axial images were obtained through the abdomen and pelvis without the use of intravenous contrast. Auto Exposure Controls were utilized during the CT exam to meet ALARA standards for radiation dose reduction. INDICATION: Painful urination. Right-sided flank pain. COMPARISON: 01/28/2014. FINDINGS: The heart is unremarkable. The lung bases are clear. There is mild right-sided hydronephrosis with mild wall thickening of the proximal right ureter. No obstructing calculi are seen. No perinephric fat stranding. The urinary bladder is decompressed. The liver, spleen, pancreas and adrenal glands have a normal noncontrast CT appearance. The gallbladder is unremarkable. There is no pathologically enlarged mesenteric or retroperitoneal adenopathy. The bowel loops are nondilated. The appendix is visualized in the right lower quadrant and has a normal appearance. There is no free fluid or free air. No acute osseous abnormalities. There is no free air, loculated collection or adenopathy in the pelvis. IMPRESSION: Mild right-sided hydronephrosis with mild wall thickening in the proximal right ureter. No obstructing calculi. Findings may represent recently passed calculus versus urinary tract infection. Recommend correlation with UA. Dictated by: Dictated on workstation # [id number]
[2021-08-29] MEDS ORDERED: cefTRIAXone 1 GM PRE-MIX 50 ML IV ONE (20:45)
[2021-08-29 21:17] VITALS: BP 136/90
== END 2021-08-29 21:20 | disposition home or self-care (01) ==
LOC: EDUNIT# 19:13 → ER 19:15
DX: N39.0 Urinary tract infection, site not specified (principal); Z91.040 Latex allergy status
CPT/HCPCS: 74176; 81000; 84703; 87077; 87088

== ENCOUNTER → 2022-02-20 | Outpatient (CLI) | payer BC ==
[~2022-02-20] MED LIST changes: +ALBU6.7H13 INH; -ALBU6.7H8 INH; +NITR100C10; +RT-ALBUTEROL SULF 2.5 MG/3 ML PRE-MIX VIAL INH ONE
== END ==
LOC: RT 12:38
PROVIDERS: ATTEND Nurse Practitioner Family
DX: J44.9 Chronic obstructive pulmonary disease, unspecified (principal)
CPT/HCPCS: 94060; 94726; 94729

== ENCOUNTER → 2022-11-27 | Outpatient (CLI) | payer BC ==
[~2022-11-27] MED LIST changes: -RT-ALBUTEROL SULF 2.5 MG/3 ML PRE-MIX VIAL INH ONE
--- NOTE | 2022-11-28 16:33 | Diagnostic Imaging Report ---
3-D bilateral screening mammogram. 2-D and 3-D bilateral screening mammography was performed with CAD. COMPARISON: This study was compared to the prior exam of 10/12/2014. At this time, there are no complaints. The patient did note a recurring mass in the left retroareolar region. FINDINGS: In the interval since the prior exam, the breasts have increased in size and there has been considerable fatty involution of each breast. There are now scattered fibroglandular densities in each breast which could obscure a lesion. In the 12 o'clock position of the left breast at posterior depth, there are a few microcalcifications. These have developed in the interval since the prior exam. These microcalcifications have a generally benign appearance. Even so, I would recommend that a compression/magnification view of these microcalcifications be obtained in the ML and CC projections to better characterize them. A true lateral view of the left breast should also be performed. There is no primary or secondary sign of malignancy noted otherwise. IMPRESSION: Additional mammographic views of the left breast would be recommended for further study. ACR category 0. ACR BI-RADS Category 0: Incomplete. (Needs additional imaging evaluation). Result letter will be mailed to the patient. Note: At least 10% of breast cancer is not imaged by mammography. Dictated by: Dictated on workstation # [id number]
== END ==
LOC: RAD 10:33
PROVIDERS: ATTEND Nurse Practitioner Family
DX: Z12.31 Encounter for screening mammogram for malignant neoplasm of breast (principal)
CPT/HCPCS: 77063; 77067

== ENCOUNTER → 2022-12-11 | Outpatient (CLI) | payer BC ==
--- NOTE | 2022-12-11 08:55 | Diagnostic Imaging Report ---
INDICATION: Left breast calcifications. Patient presents for additional views. COMPARISON: Correlation is made with the screening mammogram from 11/27/2022. TECHNIQUE: Unilateral left 2D and 3D diagnostic mammography was performed with CAD. This included magnification CC and ML views as well as conventional 90 degree lateral views. FINDINGS: There is a cluster of microcalcifications in the upper aspect of the left breast at mid depth. The calcifications do show some pleomorphism. No associated soft tissue mass is identified. No other significant abnormality is identified. IMPRESSION: Indeterminate cluster of microcalcifications at the 12 o'clock location of the left breast. DCIS cannot be entirely excluded and tissue sampling is recommended. These would be amenable to a stereotactic biopsy approach. ACR BI-RADS Category 4: Suspicious abnormality. Result letter will be mailed to the patient. Note: At least 10% of breast cancer is not imaged by mammography. Dictated by: Dictated on workstation # [id number]
== END ==
LOC: RAD 07:56
PROVIDERS: ATTEND Nurse Practitioner Family
DX: R92.0 Mammographic microcalcification found on diagnostic imaging of breast (principal)
CPT/HCPCS: 77065; G0279

== ENCOUNTER → 2022-12-18 | Outpatient (CLI) | payer BC ==
[~2022-12-18] VITALS: Ht 162.6 cm; Wt 75.0 kg
[2022-12-18] MEDS: LIDOCAINE 1% INJ 10 ML VIAL INJ ONE (14:05)
[2022-12-18] MEDS: LIDOCAINE 1% INJ 10 ML VIAL ONE (15:02)
--- NOTE | 2022-12-18 15:33 | Diagnostic Imaging Report ---
INDICATION: Left breast calcifications. Patient presents for stereotactic biopsy. DETAILS OF THE PROCEDURE: The patient brought to the stereotactic suite and placed in a chair in the sitting upright position. The left breast was positioned craniocaudal. Tomographic and stereotactic imaging of the left breast was then performed. The cluster of microcalcifications in the upper central left breast was targeted. All images were viewed on a dedicated workstation. The superior left breast was then prepped and draped in the usual sterile fashion. A small amount of 1% lidocaine was utilized for local anesthesia. An 8-gauge vacuum-assisted needle was then advanced from a craniocaudal approach and placed per stereotactic coordinates. Additional lidocaine was administered. A total of four core biopsies was obtained with the vacuum-assisted device. Specimen radiograph was obtained demonstrating numerous calcifications within specimen labeled #1 with a small calcification also noted within specimen labeled #2. A marker clip was then deployed. The needle was removed and hemostasis was obtained. The patient tolerated the procedure well. A post procedure 2D CC and mediolateral mammogram was then performed on dedicated mammographic equipment. Images demonstrate the marker clip in the upper central left breast. The patient left the Department in stable condition. IMPRESSION: Successful stereotactic biopsy of the left breast calcifications utilizing a vacuum-assisted device. Pathology results are currently pending. Dictated by: Dictated on workstation # [id number]
== END ==
LOC: RAD 13:18
PROVIDERS: ATTEND Nurse Practitioner Family
DX: R92.0 Mammographic microcalcification found on diagnostic imaging of breast (principal)
CPT/HCPCS: 19081; A4648